=== PATIENT | male | born 1990 | race Caucasian/White ===

== ENCOUNTER 2017-01-26 13:14 | Emergency (ER) | payer OTHER ==
[2017-01-26 13:59] LABS: BILIRUBIN NEGATIVE (NEGATIVE); BLOOD NEGATIVE Ery/uL (NEGATIVE); CLARITY CLEAR (CLEAR); COLOR YELLOW (YELLOW); GLUCOSE (U) NORMAL (NORMAL); KETONE (U) NEGATIVE (NEGATIVE); LEUKOCYTES NEGATIVE Leu/uL (NEGATIVE); NITRITE NEGATIVE (NEGATIVE); PROTEIN NEGATIVE (NEGATIVE); UROBILINOGEN 0.2 mg/dL (0.2-1.0)
[2017-01-26 14:25] LABS: ALBUMIN 4.5 g/dL (3.5-5.0); BILIRUBIN - TOTAL 0.7 mg/dL (0.1-1.0); CREATININE 1.3 mg/dL (0.7-1.2); GLOBULIN (CALCULATION) 1.9 g/dL (2.2-4.2); POTASSIUM 3.4 mmol/L (3.5-5.1); TOTAL PROTEIN 6.4 g/dL (6.4-8.3)
[2017-01-26 14:26] LABS: BASOPHIL 0.3 % (0-2); EOSINOPHIL 4.2 % (0-5); HGB 14.4 g/dl (13.2-18.0); LYMPHOCYTE 21.2 % (15-48); MCH 30.2 pg (25.0-31.0); MCHC 36.9 g/dL (32.0-36.0); MCV 81.8 fL (78.0-100.0); MONOCYTE 7.2 % (0-12); NEUTROPHIL 67.1 % (41-80); PLT 214 K/uL (150-400); RBC 4.77 M/uL (4.70-6.00); RDW 12.2 % (11.5-14.0); WBC 8.8 K/uL (4.0-10.5)
== END 2017-01-26 17:37 | disposition home or self-care (01) ==
LOC: FER 13:14
PROVIDERS: Internal Medicine
DX: T67.5XXA Heat exhaustion, unspecified, initial encounter (principal); E86.0 Dehydration; R19.7 Diarrhea, unspecified; Z86.19 Personal history of other infectious and parasitic diseases; X30.XXXA Exposure to excessive natural heat, initial encounter
CPT/HCPCS: 36415; 71010; 80053; 81003; 85025; 93005; J2405

== ENCOUNTER 2022-01-11 16:33 | Emergency (ER) | payer OTHER ==
[~2022-01-11 16:33] MED LIST: ATIVAN0.5 MG PO
== END 2022-01-11 17:52 | disposition home or self-care (01) ==
LOC: FER 16:33
DX: S81.851A Open bite, right lower leg, initial encounter (principal); Z28.311 Partially vaccinated for COVID-19; Z91.012 Allergy to eggs; W54.0XXA Bitten by dog, initial encounter; Y92.410 Unspecified street and highway as the place of occurrence of the external cause; Y99.0 Civilian activity done for income or pay
CPT/HCPCS: 99283